=== PATIENT | male | born 1955 | race Caucasian/White ===

== ENCOUNTER 2021-10-21 19:38 | Emergency (ER) | payer OTHER ==
[~2021-10-21] VITALS: Ht 170.2 cm; Wt 90.7 kg
[~2021-10-21 19:38] MED LIST: PERCOCET 5-3251 EACH PO; TAMSULOSIN HCL0.4 MG PO; ZOFRAN ODT4 MG PO
[2021-10-21] MEDS ORDERED: NORCO5 PO (20:59)
[2021-10-21 21:21] VITALS: BP 152/109
== END 2021-10-21 21:31 | disposition home or self-care (01) ==
LOC: ER 19:38
DX: S93.401A Sprain of unspecified ligament of right ankle, initial encounter (principal); S93.601A Unspecified sprain of right foot, initial encounter; W01.0XXA Fall on same level from slipping, tripping and stumbling without subsequent striking against object, initial encounter; Y93.89 Activity, other specified; Y92.89 Other specified places as the place of occurrence of the external cause; Y99.8 Other external cause status